=== PATIENT | male | born 1945 | race Caucasian/White ===

== ENCOUNTER 2017-09-02 11:39 | Day surgery (SDC) | payer OTHER ==
[2017-09-01 08:40] VITALS: BMI 32.1
[~2017-09-02 11:39] MED LIST: ACETAMINOPHEN 325 MG TABLET (FP) PO PRN
[2017-09-02] MEDS: GENTAMICIN SULFATE 0.3% OPHTHALMIC (EYE DROPS) 5ML BOTTLE ONE ×2 (12:00→12:15)
[2017-09-02] MEDS: TROPICAMIDE 1% OPHTH SOLN 15 ML BOTTLE ONE ×5 (12:00→12:20)
[2017-09-02] MEDS: PHENYLEPHRINE 2.5% OPHTH SOLN 15 ML BOTTLE ONE ×5 (12:00→12:20)
[2017-09-02] MEDS: CYCLOPENTOLATE HCL 1% OPHTH SOLN 2 ML BOTTLE ONE ×5 (12:00→12:20)
[2017-09-02] MEDS: KETOROLAC TROMETHAMINE 0.5% 5 ML BOTTLE OPTHALMIC ONE ×5 (12:00→12:20)
[2017-09-02] MEDS ORDERED: PROPOFOL 20 ML ONE (12:54)
[2017-09-02] MEDS ORDERED: BUPIVACAINE HCL/PF 0.5% (5MG/ML) 10 ML VIAL ONE (13:03)
[2017-09-02] MEDS ORDERED: LIDOCAINE HCL/PF 2% SDV 5ML VIAL ONE (13:03)
[2017-09-02] MEDS ORDERED: ACETAMINOPHEN 325 MG TABLET (FP) ONE (14:27)
[2017-09-02 14:37] VITALS: TEMP 98.1
[2017-09-02 14:59] VITALS: BP 146/93; PULSE 88
--- NOTE | 2017-09-02 15:23 | OP ---
DATE OF OPERATION: 09/02/2017 TITLE OF PROCEDURE: Planned extracapsular cataract extraction and phacoemulsification and insertion of posterior chamber lens implant, left eye. SURGEON: Phil Hirsch MD SOIL SCIENTIST SURGEON: None. ANESTHESIOLOGIST: Dana Arredondo MD NURSE SCHOOL STANDARDS COACH: Juvenal Nobles CRNA COMPLICATIONS: None. PREOPERATIVE DIAGNOSIS: Mature cataract, left eye. POSTOPERATIVE DIAGNOSIS: Mature cataract, left eye. FINDINGS AND PROCEDURE: After successful peribulbar anesthesia, lid block, and digital massage was given to soften the left eye, the patient was prepped and draped in the usual manner to expose the left eye. Tegaderm strips and lid speculum were inserted, and the microscope was brought in position over the eye. Superior fornix-based flap was then fashioned for 12 mm using Urbano scissors and 0.12 forceps, and hemostasis achieved by wet field electrocautery. Limbal groove was fashioned for 3 mm with a crescent blade, dissecting anterior to clear cornea. A 3-mm blade was used to enter the anterior chamber. Under Viscoat, 360-degree anterior capsulotomy was performed, and the leaflet removed from the eye. then, phacoemulsification of the entire nucleus was done in approximately 2 minutes' time, followed by irrigation and aspiration of all cortical material without complication, leaving an intact posterior capsule and a red reflex present. Provisc was injected to the posterior chamber to deepen the posterior capsule. The implant was inspected carefully with the microscope and found to be free of defects, debris, and flaws and irrigated thoroughly with BSS. It was then folded, placed in the Provisc-filled cartridge. The cartridge was then injected, and the implant was injected into the eye such that the inferior haptic was in the inferior capsular bag and the superior haptic in the superior capsular bag. It was rotated in a horizontal position with the Sinskey hook. The Provisc was aspirated out, replaced with Miochol and Miostat and BSS. The wound was closed with a single interrupted 2-0 Ethilon suture and tested for leakage and none was found. Conjunctival-tenon flap was reapproximated. At this point, the implant was fixated in the capsular bag, centrally located with a round pupil, intact posterior capsule, and red reflex present and normotensive eye. Topical Betoptic S and Maxitrol ophthalmic suspensions were placed as was bacitracin ophthalmic ointment. Then, the Tegaderm strips and the speculum were removed from the lids. The lids were closed. A patch and shield placed on the eye, and the patient was then discharged from the operating room to the recovery in good condition, having tolerated the procedure well. Hank ROA/[id number]
== END 2017-09-02 15:10 | disposition home or self-care (01) ==
LOC: FASU 11:39
PROVIDERS: ATTEND Ophthalmology
PROC: 08RK3JZ Replacement of Left Lens with Synthetic Substitute, Percutaneous Approach (ICD-10-PCS; principal; 2017-09-02 13:37)
DX: H25.22 Age-related cataract, morgagnian type, left eye (principal)

== ENCOUNTER 2017-12-16 06:59 | Day surgery (SDC) | payer OTHER ==
[2017-12-08 19:02] VITALS: BMI 30.7
[2017-12-16] MEDS: KETOROLAC TROMETHAMINE 0.5% 5 ML BOTTLE OPTHALMIC ONE ×5 (07:40→08:00)
[2017-12-16] MEDS: PHENYLEPHRINE 2.5% OPHTH SOLN 15 ML BOTTLE ONE ×4 (07:40→08:00)
[2017-12-16] MEDS: GENTAMICIN SULFATE 0.3% OPHTHALMIC (EYE DROPS) 5ML BOTTLE ONE ×2 (07:40→08:00)
[2017-12-16] MEDS: CYCLOPENTOLATE HCL 1% OPHTH SOLN 2 ML BOTTLE ONE ×4 (07:40→07:55)
[2017-12-16] MEDS: TROPICAMIDE 1% OPHTH SOLN 15 ML BOTTLE ONE ×5 (07:40→08:00)
[2017-12-16] MEDS ORDERED: PHENYLEPHRINE 2.5% OPHTH SOLN 15 ML BOTTLE OD ONE (07:45)
[2017-12-16] MEDS ORDERED: CYCLOPENTOLATE HCL 1% OPHTH SOLN 2 ML BOTTLE OD ONE (08:00)
[2017-12-16] MEDS ORDERED: ACETYLCHOLINE 1:100 INTRA-OCUL 20 MG/2 ML KIT ONE (08:54)
[2017-12-16] MEDS ORDERED: TETRACAINE 0.5% OPHTH SOLN 2 ML BOTTLE ONE (08:54)
[2017-12-16] MEDS ORDERED: LIDOCAINE HCL 2% JELLY 10 ML CARTRIDGE ONE (08:57)
[2017-12-16] MEDS ORDERED: ACETAMINOPHEN 325 MG TABLET (FP) PO PRN (08:58)
[2017-12-16] MEDS ORDERED: LIDOCAINE HCL/PF 2% SDV 5ML VIAL ONE (08:58)
[2017-12-16] MEDS ORDERED: MIDAZOLAM HCL 2 MG/2 ML SINGLE DOSE VIAL ONE (09:05)
[2017-12-16] MEDS ORDERED: PROPOFOL 20 ML ONE (09:17)
[2017-12-16 10:39] VITALS: TEMP 97.6
[2017-12-16 11:41] VITALS: BP 128/78; PULSE 76
--- NOTE | 2017-12-16 15:00 | OP ---
DATE OF OPERATION: 12/16/2017 TITLE OF PROCEDURE: Planned extracapsular cataract extraction, phacoemulsification, and insertion of posterior chamber lens implant, right eye. SURGEON: Phil Hirsch MD EVENT SPECIALIST PRODUCT DEMONSTRATOR SURGEON: Phil Hirsch MD ANESTHESIA: Local standby. ANESTHESIOLOGIST: Merlin Parikh MD COMPLICATIONS: None. PREOPERATIVE DIAGNOSIS: Cataract, left eye. POSTOPERATIVE DIAGNOSIS: Cataract, left eye. FINDINGS AND PROCEDURE: After successful peribulbar anesthesia was given to the left eye, the patient was prepped and draped in the usual manner to expose the left eye. A lid speculum was inserted after Tegaderm strips were placed and the operating room microscope brought into position over the right eye. A superior fornix flap was then fashioned for 12 mm using Urbano scissors and 0.12 forceps, and hemostasis achieved with cautery. A limbal groove was fashioned for 3 mm with a crescent blade and dissected anterior into clear cornea. A 3-mm blade was used to enter the anterior chamber. Then, under Viscoat, a 360-degree anterior capsulotomy was performed and the leaflet removed from the eye and phacoemulsification done in a bimanual technique in approximately 1-1/2 minutes' time, followed by irrigation and aspiration of all cortical material, an intact posterior capsule and a red reflex present. Provisc was injected in the posterior chamber to deepen the posterior capsule. The implant was inspected carefully and found to be free of defects, debris, and flaws. It was folded, placed in the Provisc-filled cartridge, and then, the cartridge was placed in the injector and the implant was injected into the posterior chamber such that the inferior haptic was placed in the inferior capsular bag and the superior haptic in the superior capsular bag and then rotated in the horizontal position with a Sinskey hook. Provisc was aspirated out, replaced with Miochol and Miostat and BSS, and the wound was closed with single interrupted 2-0 Ethilon suture and tested for leakage; none was found. The conjunctival-tenon flap was reapproximated. At this point, the implant was fixated in the capsular bag, centrally located, with a round pupil, intact posterior capsule and a red reflex present. As I mentioned, the conjunctival-tenon flap was brought back into its normal position, and topical Betoptic S, Maxitrol ophthalmic suspensions were placed, as was bacitracin and polymyxin B ophthalmic ointment, and then, the Tegaderm strips and speculum were removed from the lids. The lids were closed and a patch and shield placed, and the patient was then discharged from the operating room to the recovery area in good condition, having tolerated the procedure well. Hank ROA/[id number]
== END 2017-12-16 11:15 | disposition home or self-care (01) ==
LOC: FASU 06:59
PROVIDERS: ATTEND Ophthalmology
PROC: 08RJ3JZ Replacement of Right Lens with Synthetic Substitute, Percutaneous Approach (ICD-10-PCS; principal; 2017-12-16 09:31)
DX: H26.9 Unspecified cataract (principal)